=== PATIENT | female | born 2000 | race Caucasian/White ===

== ENCOUNTER 2024-04-08 03:24 | Emergency (ER) | payer OTHER ==
[2024-04-08 03:31] VITALS: BP 100/55; PULSE 72; RESP 17; TEMP 97.8; BMI 17.7
[2024-04-08] MEDS ORDERED: ONDANSETRON 4 MG/2 ML VIAL ONE ×2 (03:42→06:06)
[2024-04-08] MEDS: LACTATED RINGERS SOLUTION 1,000 ML/1,000 ML INFUS.BAG IV ONE (04:06)
[2024-04-08] MEDS: ONDANSETRON 4 MG/2 ML VIAL IVPUSH ONE ×2 (04:06→06:13)
== END 2024-04-08 06:15 | disposition home or self-care (01) ==
LOC: FER 03:24
PROC: 3E033GC Introduction of Other Therapeutic Substance into Peripheral Vein, Percutaneous Approach (ICD-10-PCS; principal; 2024-04-08)
PROC: 3E033GC Introduction of Other Therapeutic Substance into Peripheral Vein, Percutaneous Approach (ICD-10-PCS; 2024-04-08)
PROC: 3E033GC Introduction of Other Therapeutic Substance into Peripheral Vein, Percutaneous Approach (ICD-10-PCS; 2024-04-08)
DX: K52.9 Noninfective gastroenteritis and colitis, unspecified (principal); R10.84 Generalized abdominal pain; R11.2 Nausea with vomiting, unspecified
CPT/HCPCS: 99284-25

== ENCOUNTER 2025-07-04 16:30 | Emergency (ER) | payer OTHER ==
[2025-07-04 17:13] VITALS: BP 122/70; PULSE 72; RESP 18; TEMP 98.4; BMI 17.7
== END 2025-07-04 17:43 | disposition home or self-care (01) ==
LOC: FER 16:30
DX: S60.222A Contusion of left hand, initial encounter (principal); W20.8XXA Other cause of strike by thrown, projected or falling object, initial encounter; Y99.0 Civilian activity done for income or pay
CPT/HCPCS: 73130-TC-LT-FY; 99283-25